=== PATIENT | male | born 1980 | race Two or more races ===

== ENCOUNTER 2022-02-16 15:17 | Emergency (ER) | payer MEDICAID ==
[~2022-02-16] VITALS: Ht 180.3 cm; Wt 93.0 kg
[2022-02-16 15:17] VITALS: BP 143/86
--- NOTE | 2022-02-16 15:20 | NUR ---
BIBS C/O BEE STING ON L ARM FROM YESTERDAY . IN ROOM AIR AND DENIES SOB. RESPIRATION REGULAR AND UNLABORED. WILL CONTINUE TO MONITOR THE PATIENT.
[2022-02-16] MEDS ORDERED: CETI-90 PO (15:34)
[2022-02-16] MEDS ORDERED: TRIA80OI TP (15:34)
--- NOTE | 2022-02-16 15:41 | NUR ---
Patient discharged to home in stable condition. Written and verbal after care instructions given. Patient verbalizes understanding of instruction.
== END 2022-02-16 15:41 | disposition home or self-care (01) ==
LOC: ER 15:25
DX: T63.441A Toxic effect of venom of bees, accidental (unintentional), initial encounter (principal); L53.9 Erythematous condition, unspecified; Y92.89 Other specified places as the place of occurrence of the external cause